=== PATIENT | female | born 1950 | race Caucasian/White ===

== ENCOUNTER → 2017-12-06 07:47 | Outpatient (CLI) | payer MEDICARE, SELFPAY ==
--- NOTE | 2017-12-06 07:52 | US_ITS ---
US abdomen limited History:Right upper quadrant pain with nausea and diarrhea Ordering Physician:Sang Johnson MD Patient Age: 67 years Comparison:None Findings: Pancreas:Unremarkable. No obvious mass or abnormal fluid collection. No ductal dilatation Liver:No focal liver lesions demonstrated. Homogeneous echogenicity. No intrahepatic biliary ductal dilatation evident Right Kidney:Unremarkable. Normal size and echogenicity. No hydronephrosis Gallbladder:No gallstones, gallbladder wall thickening, pericholecystic fluid, or biliary dilatation. There is a small amount of gallbladder sludge noted nonspecific. No shadowing stones Impression: 1. Small amount of gallbladder sludge of questioned clinical significance. 2. Otherwise negative right upper quadrant ultrasound
== END ==
PROVIDERS: Family Provider Family Medicine; PCP Family Medicine; Visit Provider Family Medicine
DX: R10.11 Right upper quadrant pain (principal)
CPT/HCPCS: 76705

== ENCOUNTER → 2018-12-24 09:38 | Outpatient (CLI) | payer MEDICARE, SELFPAY ==
--- NOTE | 2018-12-24 09:45 | XR_ITS ---
XR DEXA axial skeleton HISTORY: ITS.REASON: POST MENOPAUSAL SCREENING ORDERING PHYSICIAN: Sang Johnson MD PATIENT AGE: 68 years COMPARISON: 11/22/2016 FINDINGS: The BMD measured at the AP Spine L1-L4 is 0.836 g/cm squared with a T score of -2.9. This is considered Osteoporotic according to the World Health Organization criteria. Fracture risk is High. Treatment is advised. The lumbar spine density is increased bilaterally percent. The main hip density has a T score of -1.4 and is increased by 2.3% IMPRESSION: Osteoporosis with high fracture risk. Treatment is advised. Suggest follow-up exam November 2019
--- NOTE | 2018-12-24 09:45 | MM_ITS ---
PROCEDURE: MM DIG SCREENING MAMM BI W/CAD CLINICAL INDICATION: SCREENING There is a history of breast cancer in the patient's maternal aunt. COMPARISON: DMSB DIG MAMM-SCREEN GENI W/CAD from 11/22/2016 TECHNIQUE: Standard CC and MLO images were obtained. R2 CAD reviewed. FINDINGS: There is a diffusely dense a heterogenic parenchymal pattern somewhat lessening the sensitivity of mammography. There is a mole marker left breast and a couple benign-appearing microcalcifications left breast. There also is a biopsy clip left breast subareolar region. There is no suspicious lesion and no suspicious microcalcifications. IMPRESSION: Diffusely dense parenchymal pattern with no suspicious lesion seen BI-RAD Category: 2 Benign Finding(s) FOLLOW-UP: 1YR 1 Year Follow-up (A letter has been sent to the patient regarding results of the study.) Dictated by: Dr. Viral Gomez MD 01/15/2019 10:55 Signed by: <Electronically signed by Dr. Viral Gomez MD in [place]> 01/15/2019 10:55
== END ==
PROVIDERS: PCP Family Medicine; Visit Provider Family Medicine
DX: Z12.31 Encounter for screening mammogram for malignant neoplasm of breast (principal); M81.0 Age-related osteoporosis without current pathological fracture
CPT/HCPCS: 77067; 77080

== ENCOUNTER → 2020-03-15 08:05 | Outpatient (CLI) | payer MEDICARE, SELFPAY ==
--- NOTE | 2020-03-15 | CA_ITS ---
APPROVED REPORT Account Collector: IAIN Laterality: Bilateral Risk Factors Hypertension: Hyperlipidemia Doppler Spectral Velocity Analysis ECA (R) 54.70/13.70 cm/s ECA (L) 73.20/18.00 cm/s dICA (R) 106.20/39.40 cm/s dICA (L) 86.70/34.00 cm/s Esteban (R) 98.50/42.00 cm/s Esteban (L) 81.50/37.20 cm/s pICA (R) 64.20/19.30 cm/s pICA (L) 80.90/34.70 cm/s dCCA (R) 71.30/24.40 cm/s dCCA (L) 68.70/23.80 cm/s pCCA (R) 81.50/25.70 cm/s pCCA (L) 71.90/24.40 cm/s Vert (R) 41.50/15.00 cm/s Vert (L) 61.00/23.10 cm/s ICA/CCA 1.49 ICA/CCA 1.26 Findings Duplex evaluation demonstrates stenosis of the right proximal internal carotid artery <20% with PSV <140 cm/sec, EDV <100 cm/sec, and IC/CC Ratio <4.0. Duplex evaluation demonstrates stenosis of the left proximal internal carotid artery <20% with PSV <140 cm/sec, EDV <100 cm/sec, and IC/CC Ratio <4.0. Conclusion Duplex evaluation demonstrates stenosis of the right proximal internal carotid artery <20% with PSV <140 cm/sec, EDV <100 cm/sec, and IC/CC Ratio <4.0. Duplex evaluation demonstrates stenosis of the left proximal internal carotid artery <20% with PSV <140 cm/sec, EDV <100 cm/sec, and IC/CC Ratio <4.0. Electronically signed by : Jomar Contreras MD 03/16/2020 17:26:27
--- NOTE | 2020-03-15 08:09 | XR_ITS ---
PROCEDURE: XR DEXA AXIAL SKELETON CLINICAL HISTORY: OSTEOPOROSIS The patient is postmenopausal and currently is on vitamin-D and calcium. COMPARISON: CR DXA Exam from 12/24/2018 FINDINGS: The total right hip BMD is 0.767 grams/centimeter squared with a T-score of -1.4. Stable and unchanged from the previous DEXA scan 12/24/2018 the right femoral neck is 0.631 grams/centimeter sq with a T-score -2.0 showing slight improvement from the previous study which was -2.2 The total left hip BMD is 0.731 grams/centimeter squared with a T-score of -1.7, the previous value was -1.4. The left femoral neck is 0.672 grams/centimeter squared with a T-score -1.6 which shows interval improvement from the previous study at which time it was -2.2. The lumbar spine BMD is 0.776 grams/centimeter squared with a T-score of -2.5 which is a slight improvement from the previous study at which time it was -2.9. IMPRESSION: T-scores in the osteopenia range for the bilateral hips borderline osteoporosis lumbar spine Based on these results a follow-up exam is recommended in 2 year. Dictated by: Dr. Viral Gomez MD 03/15/2020 13:35 Dr. Viral Gomez MD in [place] 03/15/2020 13:35
--- NOTE | 2020-03-15 08:10 | MM_ITS ---
PROCEDURE: MM DIG SCREENING MAMM BI W/CAD Digital Breast Tomosynthesis Included CLINICAL INDICATION: SCREENING There is a history of breast cancer in the patient's maternal aunt. There has been a previous biopsy left breast for benign disease. COMPARISON: MG DMSB DIG MAMM-SCREEN GENI from 05/18/2014 MG DMSB DIG MAMM-SCREEN GENI W/CAD from 11/22/2016 MG MM DIG SCREENING MAMM BI W/CAD from 12/24/2018 TECHNIQUE: Standard CC and MLO images and 3D Tomosynthesis was obtained. R2 CAD reviewed. FINDINGS: There is a diffusely dense and heterogenic parenchymal pattern as noted previously. There is a mole marker left breast. There is a biopsy clip left breast along with a couple of benign-appearing microcalcifications. Jake images are helpful in ruling out any suspicious lesion in either breast. There are no suspicious microcalcifications. IMPRESSION: Stable dense parenchymal pattern with no suspicious lesions seen BI-RAD Category: 2 Benign Finding(s) FOLLOW-UP: 1YR 1 Year Follow-up (A letter has been sent to the patient regarding results of the study.) Dictated by: Dr. Viral Gomez MD 03/15/2020 10:26 Dr. Viral Gomez MD in [place] 03/15/2020 10:26
== END ==
PROVIDERS: PCP Family Medicine; Visit Provider Nurse Practitioner Family
DX: Z12.31 Encounter for screening mammogram for malignant neoplasm of breast (principal); M81.0 Age-related osteoporosis without current pathological fracture; R09.89 Other specified symptoms and signs involving the circulatory and respiratory systems
CPT/HCPCS: 77063; 77067; 77080; 93880

== ENCOUNTER → 2021-01-17 15:04 | Outpatient (POV) | payer MEDICARE, SELFPAY | PROVIDERS: Visit Provider Dermatology | DX: Z00.00 Encounter for general adult medical examination without abnormal findings (principal) ==

== ENCOUNTER → 2021-05-03 12:30 | Outpatient (CLI) | payer MEDICARE, SELFPAY | PROVIDERS: PCP Family Medicine; Visit Provider Family Medicine | DX: R00.2 Palpitations (principal) | CPT/HCPCS: 93225; 93226 ==

== ENCOUNTER → 2021-05-08 09:02 | Outpatient (CLI) | payer MEDICARE, SELFPAY ==
--- NOTE | 2021-05-08 09:09 | CA_ITS ---
APPROVED REPORT EXAM: Comprehensive 2D, Doppler, and color-flow Echocardiogram Furnace Tender: Cynthia Crandall RVT Ht: 5 ft 5 in Wt: 135lbs BSA: 1.67 BP: 150/80 mmHg Indications: PALPS,HTN 2D Dimensions LVOT 1.93 cm (M/F) 1.5-2.5 LA Volume 52.10 mL LA Volume Index 31.19 mL/m2 (M/F) 16-34 M-Mode Dimensions RVDd 3.15 cm (0.9-2.6) LA Diam 3.95 cm (1.9-4.0) LVDd 3.18 cm (3.5-5.7) Ao Diam 2.64 cm (2.0-3.7) LVDs 2.04 cm (3.5-5.7) IVSd 0.89 cm (0.6-1.1) PWd 0.75 cm (0.6-1.1) EF (Teich) 66.70% FS 35.80% EDV (Teich) 40.30 mL TAPSE 2.37 (<1.7) ESV (Teich) 13.40 mL LV Diastology E Decel Time 230.00 (160-240 msec) E/A Ratio 0.7 MED E' 11.40 (< 7 cm/sec) E'/MED E' Ratio 7.95 (>14) LAT E' 13.40 (<10 cm/sec) E/LAT E' Ratio 6.76 (>14) Mitral Valve MV E Max Jay Jay. 91.00 (40-130 cm/s) MV A Velocity 122.00 (40-130 cm/s) E/A Ratio 0.74 MV Decel. Time 230.00 (160-240 ms) MV PHT 67.00 ms Pulmonary Valve PV Peak Velocity 75.00 (50-150 cm/s) Tricuspid Valve TR P. Velocity 282.00 cm/s RAP Estimate 10.00 mmHg RVSP 41.90 mmHg Left Ventricle Left atrium is qualitatively mildly enlarged, left ventricle is normal size, there is no concentric left ventricular hypertrophy, visually estimated ejection fraction 55% with no regional wall motion abnormality, diastolic parameters are within normal range. Right Ventricle Right atrium and right ventricle are mildly enlarged with normal contractility. Aortic Valve Aortic valve is minimally thickened and fibrosed, there is no aortic stenosis or aortic insufficiency. Mitral Valve Mitral valve leaflets are grossly normal, there is mild mitral regurgitation. Tricuspid Valve Tricuspid valve grossly normal, there is mild tricuspid regurgitation. Tricuspid regurgitation jet velocity is inadequate for calculation of the right ventricular systolic pressure. Pulmonic Valve Pulmonic valve is poorly visualized. Great Vessels Aortic root is normal size. Inferior vena cava normal size with normal inspiratory collapse. Pericardium No significant pericardial effusion noted. Conclusion 1. Mild biatrial enlargement, normal left ventricular size, visually estimated ejection fraction 55% with no regional wall motion abnormality, diastolic parameters are within normal range. 2. Mildly enlarged right ventricle with normal contractility. 3. Mild mitral and tricuspid regurgitation. 4. No significant pericardial effusion noted. 5. Inferior vena cava normal size with normal inspiratory collapse. Electronically signed by : Tien Rosas MD 05/08/2021 19:45:03
== END ==
PROVIDERS: PCP Family Medicine; Visit Provider Family Medicine
DX: R00.2 Palpitations (principal)
CPT/HCPCS: 93306

== ENCOUNTER → 2021-05-18 09:48 | Outpatient (CLI) | payer MEDICARE, SELFPAY ==
--- NOTE | 2021-05-18 09:52 | MM_ITS ---
PROCEDURE INFORMATION: Exam: MG Bilateral Screening 3D Mammography Exam date and time: 05/18/2021 9:52 AM Age: 70 years old Clinical indication: Encounter for screening mammogram for malignant neoplasm of breast TECHNIQUE: Imaging protocol: Bilateral screening tomosynthesis and 2D mammography including computer-aided detection (CAD) when performed. COMPARISON: 1. MG MM DIG SCREENING MAMM BI W/CAD 03/15/2020 8:18 AM 2. MG MM DIG SCREENING MAMM BI W/CAD 12/24/2018 10:09 AM FINDINGS: MAMMOGRAPHY: Breast composition: The breast tissue is extremely dense, limiting the sensitivity of mammography. Mass: None. Architectural distortion: None. Calcifications: No suspicious calcifications. Asymmetric density: None. Skin thickening: None. Axillary adenopathy: None. IMPRESSION: No mammographic evidence of malignancy. Annual screening is recommended unless otherwise clinically indicated. ASSESSMENT: BI-RADS Category 1: Negative
== END ==
PROVIDERS: PCP Family Medicine; Visit Provider Family Medicine
DX: Z12.31 Encounter for screening mammogram for malignant neoplasm of breast (principal)
CPT/HCPCS: 77063; 77067

== ENCOUNTER → 2021-10-31 08:34 | Outpatient (POV) | payer MEDICARE, SELFPAY | PROVIDERS: Visit Provider Dermatology | DX: Z00.00 Encounter for general adult medical examination without abnormal findings (principal) ==

== ENCOUNTER → 2022-05-29 07:59 | Outpatient (CLI) | payer MEDICARE, SELFPAY ==
--- NOTE | 2022-05-29 08:06 | XR_ITS ---
FINAL REPORT TECHNIQUE: Bone densitometry calculations of the lumbar spine and hip were obtained. CLINICAL HISTORY: osteopenia COMPARISON: March 15, 2020 FINDINGS: DEXA BONE DENSITY AXIAL SKELETON Using L1-4, the bone mineral density of the spine is 0.765 g/cm2, corresponding to T-score of -2.6. Previously measured 0.776 g/cm2, corresponding to T-score of -2.5. Using the left hip, the bone mineral density of the femoral neck is 0.741 g/cm2, corresponding to a T-score of -1.6. Previously measured 0.731 g/cm2, corresponding to T-score of -1.7. Using the right hip, the bone mineral density of the femoral neck is 0.683 g/cm2, corresponding to a T-score of -1.5. Previously measured 0.631 g/cm2, corresponding to T-score of -2.0. NOTE: T-score: Standard deviation compared with peak bone mass of young adult mean. *Following the recommendations of the International Society of Bone densitometry, classification of hip BMD is based on the lower of two T-scores; total hip or femoral neck. IMPRESSION: Persistent osteopenia of the hips and osteoporosis of the spine. No significant bone loss. Reviewed, Interpreted and Dictated by Tadeo Michel MD Transcribed by Josselyn Krueger Authenticated and [facility]
--- NOTE | 2022-05-29 11:16 | MM_ITS ---
PROCEDURE INFORMATION: Exam: MG Bilateral Screening 3D Mammography Exam date and time: 05/29/2022 8:09 AM Age: 71 years old Clinical indication: Screening examination TECHNIQUE: Imaging protocol: Bilateral Screening tomosynthesis and 2D mammography including computer-aided detection (CAD) when performed. COMPARISON: 1. MG MM DIG SCREENING MAMM BI W/CAD 05/18/2021 10:18 AM 2. MG MM DIG SCREENING MAMM BI W/CAD 03/15/2020 8:18 AM 3. MG MM DIG SCREENING MAMM BI W/CAD 12/24/2018 10:09 AM 4. MG DIG MAMMO BILAT SCREENING 09/06/2009 8:12 AM FINDINGS: MAMMOGRAPHY: Breast composition: The breast tissue is extremely dense, which lowers the sensitivity of mammography. Mass: None. Architectural distortion: No new or suspicious architectural distortion. Calcifications: No new or suspicious calcifications are present Asymmetric density: No new or suspicious asymmetric density is present Skin thickening: None. Axillary adenopathy: None. IMPRESSION: No mammographic evidence of malignancy. Recommend annual screening mammography unless otherwise clinically indicated. ASSESSMENT: BI-RADS category 1: Negative
== END ==
PROVIDERS: PCP Family Medicine; Visit Provider Family Medicine
DX: Z12.31 Encounter for screening mammogram for malignant neoplasm of breast (principal); M81.0 Age-related osteoporosis without current pathological fracture
CPT/HCPCS: 77063; 77067; 77080

== ENCOUNTER → 2022-10-16 08:09 | Outpatient (POV) | payer MEDICARE, SELFPAY | PROVIDERS: Visit Provider Dermatology | DX: Z00.00 Encounter for general adult medical examination without abnormal findings (principal) ==

== ENCOUNTER 2023-06-07 09:09 | Outpatient (CLI) | payer MEDICARE, SELFPAY ==
--- NOTE | 2023-06-07 09:14 | MM_ITS ---
PROCEDURE INFORMATION: Exam: MG Bilateral Screening 3D Mammography Exam date and time: 06/07/2023 9:17 AM Age: 72 years old Clinical indication: Screening examination TECHNIQUE: Imaging protocol: Bilateral Screening tomosynthesis and 2D mammography including computer-aided detection (CAD) when performed. COMPARISON: 1. MG MM DIG SCREENING MAMM BI W/CAD 05/29/2022 8:09 AM 2. MG MM DIG SCREENING MAMM BI W/CAD 05/18/2021 10:18 AM 3. MG MM DIG SCREENING MAMM BI W/CAD 03/15/2020 8:18 AM 4. MG DIG MAMMO BILAT SCREENING 09/06/2009 8:12 AM FINDINGS: MAMMOGRAPHY: Breast composition: The breast is heterogeneously dense, which may obscure small masses. Mass: None. Architectural distortion: No new or suspicious architectural distortion. Calcifications: No new or suspicious calcifications are present Asymmetric density: No new or suspicious asymmetric density is present Skin thickening: None. Axillary adenopathy: None. IMPRESSION: No mammographic evidence of malignancy. Recommend annual screening mammography unless otherwise clinically indicated. ASSESSMENT: BI-RADS category 1: Negative
--- NOTE | 2023-06-07 09:49 | XR_ITS ---
FINAL REPORT CLINICAL HISTORY: Osteoporosis screening COMPARISON: 05/29/2022 FINDINGS: Using L1-4, the bone mineral density of the spine is 0.755 g/cm2, corresponding to T-score of -2.7, consistent with osteoporosis. Previously was 0.765 g/cm? with T-score -2.6. Using the left hip, the bone mineral density of the femoral neck is 0.661 g/cm2, corresponding to a T-score of -1.7, consistent with low bone density. Previously was 0.741 g/cm? with T-score of -1.6. Using the right hip, the bone mineral density of the femoral neck is 0.691 g/cm2, corresponding to a T-score of -1.4, consistent with low bone density. Previously was 0.683 g/cm? with T-score of -1.5. FRAX not reported because some T-score at or below -2.5; treated for osteoporosis. NOTE: T-score: Standard deviation compared with peak bone mass of young adult mean. *Following the recommendations of the International Society of Bone densitometry, classification of hip BMD is based on the lower of two T-scores; total hip or femoral neck. IMPRESSION: Diminished bone mineral density consistent with osteoporosis. Reviewed, Interpreted and Dictated by Benny Olmstead III, MD Transcribed by Cele Vázquez Authenticated and [facility]
== END 2023-06-07 23:59 ==
LOC: RAD 09:09
PROVIDERS: PCP Family Medicine; Visit Provider Family Medicine
DX: Z12.31 Encounter for screening mammogram for malignant neoplasm of breast (principal); M81.0 Age-related osteoporosis without current pathological fracture
CPT/HCPCS: 77063; 77067; 77080

== ENCOUNTER 2023-07-21 18:45 | Emergency (ER) | payer MEDICARE, SELFPAY ==
[2023-07-21 19:15] VITALS: BP 170/80; PULSE 68; RESP 18; TEMP 36.7; O2SAT 97; BMI 24.3
--- NOTE | 2023-07-21 19:26 | ED_ITS ---
Discharge Plan Disposition Patient Disposition: Home, Self-Care Condition: Good Prescriptions Prescriptions: New azithromycin [Zithromax] 250 mg tablet 250 mg PO UD DOSE PK Qty: 6 0RF Rx Instructions: Take two (2) tablets today, then one (1) tablet days #2 thru #5 methylprednisolone 4 mg Tablets,Dose Pack 4 mg PO DIRECTED 6 Days Qty: 21 0RF Rx Instructions: Take 1 pack as directed for 6 days guaifenesin [Mucinex] 600 mg tablet extended release 12hr 600 - 1,200 mg PO BIDP PRN (Reason: Congestion) Qty: 30 0RF benzonatate [benzonatate] 100 mg capsule 100 mg PO TIDP PRN (Reason: Cough) Qty: 30 0RF No Action pravastatin 40 MG tablet 40 mg PO DAILY sennosides-docusate sodium [Stool Softener-Laxative] 1 EACH tablet 1 ea PO DAILY aspirin [Aspir-81] 81 MG tablet,delayed release (DR/EC) 81 mg PO DAILY calcium carbonate 500 MG tablet 500 mg PO DAILY vitamin E 400 UNIT capsule 400 unit PO DAILY amlodipine-benazepril [Lotrel] 1 EACH capsule 1 ea PO DAILY fluticasone propionate 120 SPR/BOT spray,suspension 1 spr intranasal DAILY Referrals Follow up/Referrals: Sang Johnson MD [Primary Care Provider] - See instructions Activity Restrictions/Add. Instructions Additional Instructions/Restrictions: Drink plenty of fluids. Take tylenol or ibuprofen for pain or fever. Take the medications as directed. Follow up with your regular doctor. GO TO THE ER FOR ANY WORSENING SYMPTOMS Clinical Impressions Clinical Impression: Sinusitis, Acute viral syndrome Instructions Patient Instructions: Sinusitis, DI for Sinusitis Discharge ED Provider: Mauricio Jean [facility] General Stated complaint: cough, [place], carlos Time Seen by Provider: 07/21/23 19:26 History of Present Illness Provider Complaint: She states that for the past 2 days she has had mild headache, chills, malaise, low grade fever and sinus congestion. Related Data Home Medications Medication Instructions Recorded Confirmed amlodipine 10 mg-benazepril 20 mg 1 ea PO DAILY htn 18 01/11/18 capsule (Lotrel) aspirin 81 mg tablet,delayed 81 mg PO DAILY Blood thinner 11/11/17 01/11/18 release (Aspir-) calcium carbonate 500 mg calcium 500 mg PO DAILY Supplement 11/11/17 01/11/18 (1,250 mg) tablet pravastatin 40 mg tablet 40 mg PO DAILY Cholesterol 11/11/17 01/11/18 sennosides 8.6 mg-docusate sodium 1 ea PO DAILY constipation 11/11/17 01/11/18 50 mg tablet (Stool Softener-Laxative) vitamin E 268 mg (400 unit) capsule 400 unit PO DAILY Supplement 11/11/17 01/11/18 fluticasone propionate 50 1 spr intranasal DAILY ALLERGIES 01/11/18 01/11/18 mcg/actuation nasal spray,suspension Previous Rx's Medication Instructions Recorded azithromycin 250 mg tablet 250 mg PO UD DOSE PK #6 tabs 07/21/23 (Zithromax) benzonatate 100 mg capsule 100 mg PO TIDP PRN Cough #30 caps 07/21/23 guaifenesin 600 mg tablet, 600 - 1,200 mg PO BIDP PRN 07/21/23 extended release 12 hr (Mucinex) Congestion #30 tabs methylprednisolone 4 mg tablets in 4 mg PO DIRECTED 6 days #21 tabs 07/21/23 a dose pack Allergies Allergy/AdvReac Type Severity Reaction Status Date / Time No Known Allergies Allergy Verified 07/21/23 19:35 [facility] Disclaimer: The information contained in this section may have been updated after the patient was seen, as this information can be updated by other users. Social History Smoking Status: Never smoker alcohol intake: never current occupational status: retired Travel in the last 8 weeks: None ROS Obtained: Yes All systems reviewed & no additional complaints except as documented Constitutional Constitutional: Reports body ache and Reports poor appetite Eyes Eyes: Reports system reviewed and no additional complaints, except as documented ENT Ears, Nose, Mouth, and Throat: Reports as per HPI Cardiovascular Cardiovascular: Reports system reviewed and no additional complaints, except as documented and Denies chest pain Respiratory Respiratory: Denies shortness of breath, Denies chest congestion, Reports cough, Denies stridor and Denies wheezing Gastrointestinal Gastrointestingal: Reports system reviewed and no additional complaints, except as documented; Denies abdominal pain, diarrhea or vomiting Musculoskeletal Musculoskeletal: Reports system reviewed and no additional complaints, except as documented and Denies arthralgias Integumentary/Breasts Skin/Breast: Reports system reviewed and no additional complaints, except as documented and Denies rash Neurologic Neurologic: Denies paresthesias Allergic/Immunologic Allergic/Immunologic: Denies wheezing Physical Exam General General appearance: alert and in no apparent distress Eye Eye exam: Present normal appearance, PERRL and EOMI ENT ENT exam: Present mucous membranes moist and normal external ear exam Expanded ENT Exam External ear exam: Present normal external inspection TM/Canal exam: Bilateral TM: erythema and bulging Nose exam: Absent sinus tenderness Nasal speculum exam: Bilateral: normal Mouth exam: Present normal external inspection; Absent drooling Teeth exam: Present normal inspection Throat exam: Present tonsillar erythema and tonsillomegaly Neck Neck exam: Present normal inspection, full ROM and trachea midline; Absent tenderness, lymphadenopathy or thyromegaly Chest Chest inspection: Present normal inspection and symmetric chest wall rise; Absent tenderness or rash Respiratory Respiratory exam: Present normal lung sounds bilaterally; Absent respiratory distress, wheezes, stridor or accessory muscle use Cardiovascular Cardiovascular exam: Present regular rate, normal rhythm and normal heart sounds Abdominal Exam Abdominal exam: Present soft; Absent distention, tenderness, guarding, rebound or rigidity Extremities Exam Extremities exam: Present normal inspection, full ROM and normal capillary refill; Absent tenderness or calf tenderness Back Exam Back exam: Present normal inspection and full ROM; Absent tenderness Neurological Exam Neurological exam: Present alert and oriented X3 Psychiatric Psychiatric exam: Present normal affect and normal mood Skin Skin exam: Present warm, dry, intact and normal color Lymphatic Lymphatic Findings: no adenopathy Medical Decision Making Medical Records Medical records reviewed: No I reviewed the patient's medical records. Ajit Inquiry Pt receiving controlled substance: No Lab Data Lab results reviewed: Yes I reviewed the patient's lab results.
[2023-07-21 20:08] LABS: UTC Influenza A Antigen Negative (Negative); UTC Influenza B Antigen Negative (Negative)
[2023-07-21 20:17] VITALS: BP 170/82; PULSE 68; RESP 18; TEMP 36.7; O2SAT 97
[2023-07-21 20:21] LABS: Coronavirus 19, PCR Not Detected (NotDetected); Influenza A, PCR Not Detected (NotDetected); Influenza B, PCR Not Detected (NotDetected)
== END 2023-07-21 20:32 | disposition home or self-care (01) ==
PROVIDERS: Emergency Provider Nurse Practitioner Family; PCP Family Medicine
DX: J01.90 Acute sinusitis, unspecified (principal); R50.9 Fever, unspecified; R51.9 Headache, unspecified; R05.9 Cough, unspecified; R09.81 Nasal congestion; B34.9 Viral infection, unspecified
CPT/HCPCS: 87636; 87804; 99204; 99212; G0463

== ENCOUNTER 2024-04-01 10:09 | Outpatient (CLI) | payer MEDICARE, SELFPAY ==
[2024-04-01 17:52] LABS: Coronavirus 19, PCR Not Detected (NotDetected); Influenza A, PCR Not Detected (NotDetected); Influenza B, PCR Not Detected (NotDetected)
== END 2024-04-01 23:59 | disposition home or self-care (01) ==
LOC: LAB.DROPOF 04-02 11:05
PROVIDERS: PCP Nurse Practitioner Family; Visit Provider Nurse Practitioner Family
DX: R50.9 Fever, unspecified (principal); J06.9 Acute upper respiratory infection, unspecified
CPT/HCPCS: 87636

== ENCOUNTER 2024-07-01 09:02 | Outpatient (CLI) | payer MEDICARE, SELFPAY ==
[2024-07-01] MEDS: DENOSUMAB 60 MG/ML SYRINGE SUBCUT (09:27)
[2024-07-01 09:29] VITALS: BP 180/70; PULSE 62; RESP 18; O2SAT 97
== END 2024-07-01 09:29 | disposition home or self-care (01) ==
LOC: INF 09:03
PROVIDERS: PCP Family Medicine; Visit Provider Family Medicine
DX: M81.0 Age-related osteoporosis without current pathological fracture (principal)
CPT/HCPCS: 96372; J0897

== ENCOUNTER 2024-07-10 09:11 | Outpatient (CLI) | payer MEDICARE, SELFPAY ==
--- NOTE | 2024-07-10 09:14 | MM_ITS ---
PROCEDURE INFORMATION: Exam: MG Bilateral Screening 3D Mammography Exam date and time: 07/10/2024 9:50 AM Age: 74 years old Clinical indication: Screening examination TECHNIQUE: Imaging protocol: Bilateral Screening tomosynthesis and 2D mammography including computer-aided detection (CAD) when performed. COMPARISON: 1. MG MM DIG SCREENING MAMM BI W/CAD 06/07/2023 9:17 AM 2. MG MM DIG SCREENING MAMM BI W/CAD 05/29/2022 8:09 AM FINDINGS: MAMMOGRAPHY: Breast composition: The breasts are heterogeneously dense, which may obscure small masses. Mass: No suspicious masses. Architectural distortion: None. Calcifications: No suspicious calcifications. Asymmetric density: None. Skin thickening: None. Axillary adenopathy: None. IMPRESSION: No mammographic evidence of malignancy. Annual screening is recommended unless otherwise clinically indicated. ASSESSMENT: BI-RADS Category 1: Negative.
--- NOTE | 2024-07-10 09:14 | XR_ITS ---
FINAL REPORT CLINICAL HISTORY: screening FINDINGS: Using L1-4, the bone mineral density of the spine is 0.753 g/cm2, corresponding to T-score of -2.7, consistent with osteoporosis. Previously was 0.755 with a T-score of -2.7 Using the left hip, the bone mineral density of the femoral neck is 0.649 g/cm2, corresponding to a T-score of -1.8, consistent with osteopenia. Previously was 0.661 with a T-score of -1.7 Using the right hip, the bone mineral density of the femoral neck is 0.717 g/cm2, corresponding to a T-score of -1.2, consistent with osteopenia. Previously was 0.691 with a T-score of-1.4. FRAX not reported because some T-score at or below-2.5, the patient is being treated for osteoporosis NOTE: T-score: Standard deviation compared with peak bone mass of young adult mean. *Following the recommendations of the International Society of Bone densitometry, classification of hip BMD is based on the lower of two T-scores; total hip or femoral neck. IMPRESSION: Diminished bone mineral density consistent with osteoporosis in the lumbar spine and osteopenia in the bilateral hips. Reviewed, Interpreted and Dictated by Tadeo Michel MD Transcribed by Cele Vázquez Authenticated and [facility]
== END 2024-07-10 23:59 | disposition home or self-care (01) ==
LOC: RAD 09:12
PROVIDERS: PCP Family Medicine; Visit Provider Family Medicine
DX: M85.88 Other specified disorders of bone density and structure, other site (principal); Z12.31 Encounter for screening mammogram for malignant neoplasm of breast
CPT/HCPCS: 77063; 77067; 77080

== ENCOUNTER 2024-12-30 09:22 | Outpatient (CLI) | payer MEDICARE, SELFPAY ==
--- OUTSIDE RECORDS SUMMARY | 2024-02-27 07:45 | XMS_ITS ---
[facility] [address] [place] [phone] Care Team Providers Care Tobacco Buyer Name Role Phone Chitra Johnson Primary Care Provider Allergies No Known Allergies Results Component Value Reference Range Notes P-Comprehensive Metabolic Pa ashley (CMP) Reviewed date:03/08/2024 10:15:18 PM Interpretation:gluc 101 Performing Lab: Notes/Report: Test performed by [facility], [facility] , [address], [place] [address] Kirill Jacobs MD, [employer] [facility] CLIA: [id number] Sodium 144 135-145 mmol/L Potassium 4.0 3.5-5.3 mmol/L Chloride 105 97-108 mmol/L CO2 27 22-32 mmol/L Glucose 101 65-99 mg/dL BUN 16 8-23 mg/dL Creatinine 0.71 0.50-1.00 mg/dL Calcium 9.7 8.6-10.4 mg/dL eGFR by Creatinine 89 >59 mL/min/1.73m2 Protein 6.6 6.0-8.3 g/dL Albumin 4.5 3.5-5.3 g/dL Alkaline Phosphatase 85 35-121 IU/L ALT (SGPT) 15 <5-47 IU/L AST (SGOT) 16 <5-40 IU/L Bilirubin, Total 0.4 <0.2-1.2 mg/dL A/G Ratio 2.1 1.1-2.5 P-Lipid Panel Reviewed date:03/08/2024 10:15:18 PM Interpretation:Normal Performing Lab: Notes/Report: Test performed by [facility], [address] , [place] [address] Kirill Jacobs MD, [employer] CLIA: [id number] Cholesterol 148 <200 mg/dL Triglycerides 115 <150 mg/dL HDL Cholesterol 44 >39 mg/dL Cholesterol / HDL Ratio 3.36 0.00-4.44 Ratio Non-HDL Cholesterol 104 <130 mg/dL LDL Cholesterol (Calculation) 81 <130 mg/dL LDL Cholesterol Levels* Less than 100 mg/dL Optimal 100 to 129 mg/dL Near Optimal/ Above Optimal 130 to 159 mg/dL Borderline High 160 to 189 mg/dL High 190 mg/dL and above Very High * Categories as recommended by the 2004 ATPIII guidelines LDL/HDL Ratio 1.8 <3.3 Ratio LDL Cholesterol Patient History Test Date: 05/16/2023 LDL Results: 73 Units: mg/dL % Change: - Test Date: 02/27/2024 LDL Results: 81 Units: mg/dL % Change: +10% REASON FOR VISIT check up and fasting, Needs labs & flu vaccine Medications Medication SIG (Take, Route, Frequency, Duration) Notes Start Date End Date Status Pravastatin Sodium 40 MG 1 tab(s) orally once a day (at bedtime); Duration: 90 days Active Alendronate Sodium 70 MG 1 tab(s) orally once a week Active Prolia 60 MG/ML as directed Subcutaneous Active Cetirizine HCl 10 MG 1 tab(s) orally once a day Active Benazepril HCl 20 MG 1 tab(s) orally once a day Active Docusate Sodium 100 MG 2TABS P.O. Q DAY Active Vitamin E Blend 400 UNIT 1 cap(s) orally once daily Active Xarelto 20 MG 1 tab(s) orally once a day (in the evening) Active Famotidine 20 MG 1 tab(s) orally 2 ti mes a day; Duration: 90 days Active Metoprolol Succinate ER 25 MG 1 tab(s) orally once a day A ctive amLODIPine Besylate 10 MG 1 tab(s) orally once a day Active Vital Signs Blood pressure systolic 128 mm Hg 02/27/20 24 Blood pressure diastolic 60 mm Hg 024 Heart Rate 56 /min 02/27/2024 Height 65 in 02/27/2024 Weight 140.0 lbs 02/27/2024 BMI 23.29 kg/m2 02/27/2024 Encounters Encounter Location Date Provider Diagnosis [facility] [address] [place] [phone] 02/27/2024 Chitra Johnson HTN (hypertension) I 10 ; Mixed hyperlipidemia E78.2 ; Paroxysmal atrial fibrillation I48.0 ; Osteoporosis M81.0 ; GERD (gastroesophageal reflux disease) K21.9 and Seasonal allergic rhinitis J30.2 Assessments Encounter Date Diagnosis (ICD Code) Assessment Notes Treatment Notes Treatment Clinical Notes Section Notes 02/27/2024 HTN (hypertension) (ICD-10 - I10) 02/27/2024 Mixed hyperlipidemia (ICD-10 - E78.2) 02/27/2024 Paroxysmal atrial fibrillation (ICD-10 - I48.0) 02/27/2024 Osteoporosis (ICD-10 - M81.0) 02/27/2024 GERD (gastroesophageal reflux disease) (ICD-10 - K21.9) 02/27/2024 Seasonal allergic rhinitis (ICD-10 - J30.2) Plan Of Treatment Medication Medication Name Sig Start Date Stop Date Notes Pravastatin Sodium 40 MG 1 tab(s) orally once a day (at bedtime); Duration: 90 days Alendronate Sodium 70 MG 1 tab(s) orally once a week Benazepril HCl 20 MG 1 tab(s) orally once a day Xarelto 20 MG 1 tab(s) orally once a day (in the evening) Famotidine 20 MG 1 tab(s) orally 2 ti mes a day; Duration: 90 days Metoprolol Succinate ER 25 MG 1 tab(s) orally once a day amLODIPine Besylate 10 MG 1 tab(s) orally once a day Next Appt Details Follow Up: 1 Year, Reason: Progress Notes * Tanja FATIMADOB:1950 ( 74 yo F)Acc No.[id number]:02/27/2024 Progress Notes Patient: Tanja ZAVALA Provider: Chitra Johnson M.D. :1950 A ge:73 Y S ex:Female Date:02/27/2024 Address:[address], [place], [id number] Subjective: * Chief Complaints: * 1 . Check up and fasting. 2. Needs labs & flu vaccine. * HPI: H PI: Patient is here today for a check up with labs for her cardiologists. Pt is fasting Pt sts she had her Prevnar 20 in 04/2023, her first shingles vaccine on 12-26-23, second does on 02-25-24, covid vaccine on 01-24-24, flu shot on 01-24-24, RSV on 02-25-24. . * ROS: D ERMATOLOGY: no R yuri. n o H nydia. G ASTROENTEROLOGY: no N ausea. n o V omiting. n o D iarrhea.? U ROLOGY: no D ifficulty urinating. n o B lood in urine. * Medical History: H ypertension, Carotid bruit - doppler 04/2014 < 20% stenosis, HLP, Paroxysmal atrial fibrillation, Osteoporosis. * Surgical History: B iopsy L breast 04/29, bilateral Cataract surgery 10/12/13, 10/26/13, right eye surgery-Dr Ann @ [facility] 11/19/17, MOHS- basal cell 04/03/2021, Tooth Extraction 04/10/2023. * Family History: F ather: 69 yrs, Parkinson. M other: alive, CHF, DM,HBP. S iblings: alive, brother with HBP. 2 brother(s) , 1 sister(s) . 1 daughter(s) - healthy. . * Social History: C URRENT TOBACCO USE S moking Status: Patient does NOT smoke. E xercise: yes. Home smoke detector use: yes. Marital Status: . Past smoking status: no, PPD: , years: ,determination:. * Medications: T aking Metoprolol Succinate ER 25 MG Tablet Extended Release 24 Hour 1 tab(s) orally once a day , Taking Xarelto 20 MG Tablet 1 tab(s) orally once a day (in the evening) , Taking Famotidine 20 MG Tablet 1 tab(s) orally 2 times a day , Taking Benazepril HCl 20 MG Tablet 1 tab(s) orally once a day , Taking Pravastatin Sodium 40 MG Tablet 1 tab(s) orally once a day (at bedtime) , Taking amLODIPine Besylate 10 MG Tablet 1 tab(s) orally once a day , Taking Vitamin E Blend 400 UNIT Capsule 1 cap(s) orally once daily , Taking Docusate Sodium 100 MG 2TABS P.O. Q DAY , Taking Cetirizine HCl 10 MG Tablet 1 tab(s) orally once a day , Taking Prolia 60 MG/ML Solution Prefilled Syringe as directed Subcutaneous , Medication List reviewed and reconciled with the patient * Allergies: N .K.D.A. Objective: * Vitals: W t:140.0, Temp:98.3, BP:128/60, HR:56, O2 Sat:93% on RA, Nurse:JADYN, Ht: 65, BMI:23.29. * Examination: G eneral Examination: General Appearance: N AD. H EENT: s clera and conjunctiva clear, PERRLA, TM's normal, translucent. O ral cavity: n o lesions, mucosa moist and WNL, no erythema. N irvin: s upple, no lymphadenopathy. C hest: n ormal shape and expansion. H eart: R SR. L ungs: c lear to auscultation. A bdomen: soft, not distended, nontender, bowel sounds present. N eurologic Exam: no focal deficits. S kin: n ormal, no rash. Assessment: * Assessment: 1. H TN (hypertension) - I10 (Primary) 2 . M ixed hyperlipidemia - E78.2? 3. P aroxysmal atrial fibrillation - I48.0 4 . O steoporosis - M81.0 5 . G ERD (gastroesophageal reflux disease) - K21.9 6 .?Seasonal allergic rhinitis - J30.2 Plan: * Treatment: Value Reference Range A /G Ratio 2.1 1.1-2.5 - * A lbumin 4.5 3.5-5.3 - g/dL * A lkaline Phosphatase 85 35-121 - IU/L * A LT (SGPT) 15 <5-47 - IU/L * A ST (SGOT) 16 <5-40 - IU/L * B ilirubin, Total 0.4 <0.2-1.2 - mg/dL * B UN 16 8-23 - mg/dL * C alcium 9.7 8.6-10.4 - mg/dL * C hloride 105 97-108 - mmol/L * C O2 27 22-32 - mmol/L * C reatinine 0.71 0.50-1.00 - mg/dL * G lucose 101 H 65-99 - mg/dL * P otassium 4.0 3.5-5.3 - mmol/L * S odium 144 135-145 - mmol/L * P rotein 6.6 6.0-8.3 - g/dL * e GFR by Creatinine 89 >59 - mL/min/1.73m2 * Chitra Johnson 03/08/2024 10:15:13 PM >See phone encounter 2.?Mixed hyperlipidemia? Refill Pravastatin Sodium Tablet, 40 MG, 1 tab(s), orally, once a day (at bedtime), 90 days, 90, Refills 3.?LAB: P-Lipid Panel (Collection Date & Time - 02/27/2024 11:22 AM)?Normal* Value Reference Range C holesterol / HDL Ratio 3.36 0.00-4.44 - Ratio * C holesterol 148 <200 - mg/dL * H DL Cholesterol 44 >39 - mg/dL * L DL Cholesterol (Calculation) 81 <130 - mg/d L * L DL/HDL Ratio 1.8 <3.3 - Ratio * N on-HDL Cholesterol 104 <130 - mg/dL * T riglycerides 115 <150 - mg/dL * Chitra Johnson 03/08/2024 10:15:13 PM >See phone encounter 3.?Paroxysmal atrial fibrillation? Continue Metoprolol Succinate ER Tablet Extended Release 24 Hour, 25 MG, 1 tab(s), orally, once a day;?Continue Xarelto Tablet, 20 MG, 1 tab(s), orally, once a day (in the evening).??4.?Osteoporosis? Refill Alendronate Sodium Tablet, 70 MG, 1 tab(s), orally, once a week, 12, Refills 3.??5.?GERD (gastroesophageal reflux disease)? Refill Famotidine Tablet, 20 MG, 1 tab(s), orally, 2 times a day, 90 days, 180, Refills 3.? * Procedure Codes: 9 4760 PULSE OX * Follow Up: 1 Year * Images: Billing Information: * Visit Code: 50313 Office Visit, Est Pt., Level 4. * Procedure Codes: 16748 PULSE OX. * Electronic signature of Chitra Johnson MD on 12/30/2024 at 03:32 AM EDT Sign off status: Pending * Provider: Chitra Johnson M.D. Date: 1 Generated for Alec reddy/Jerald/Wei on: 0 12/30/2024 03:32 AM EDT History and Physical Notes * HPI (History of Present Illness) Category Sub-Category Detail Notes Category Not es HPI Patient is here today for a chec k up with labs for her cardiologists. Pt is fasting Pt sts she had her Prevnar 20 in 04/2023, her first shingles vaccine on 12-26-23, second does on 02-25-24, covid vaccine on 01-24-24, flu shot on 01-24-24, RSV on 02-25-24. Examination Category Sub-Category Detail Notes Category Not es General Examination HEENT: sclera and c onjunctiva clear, PERRLA, TM's normal, translucent Heart: RSR Lungs: clear to auscultatio n Abdomen: soft, not distended, nontender, bowel sounds present General Appearance: NAD Skin: normal, no rash Neurologic Exam: no focal deficits Neck: supple, no lymphaden opathy Oral cavity: no lesions, mucosa m oist and WNL, no erythema Chest: normal shape and exp ansion
--- OUTSIDE RECORDS SUMMARY | 2024-06-23 06:15 | XMS_ITS ---
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 Gr. 1.015 Ketone neg Bili neg Gluc neg CBC Venipuncture (in house) Reviewed date:06/25/2024 08:29:09 AM Interpretation: Performing Lab: Notes/Report: wbc 4.6 3.5 - 10 lymph 18.0 15 - 50 mid 5.5 2 - 15 gran 76.5 35 - 80 rbc 4.66 3.5 - 5.5 hgb 13.5 11.5 - 16.5 hct 39.3 35 - 55 mcv 84.3 75 - 100 mch 29.0 25 - 35 mchc 34.4 31 - 38 platlet 279 100 - 400 P-Comprehensive Metabolic Pa ashley (CMP) Reviewed date:06/25/2024 08:29:09 AM Interpretation:gluc 102 Performing Lab: Notes/Report: Test performed by [facility] , [address], [place] [address] Kirill Jacobs MD, Floor Tiling Professional CLIA: [id number] Sodium 143 135-145 mmol/L Potassium 4.0 3.5-5.3 mmol/L Chloride 107 97-108 mmol/L CO2 26 22-32 mmol/L Glucose 102 65-99 mg/dL BUN 14 8-23 mg/dL Creatinine 0.67 0.50-1.00 mg/dL Calcium 9.8 8.6-10.4 mg/dL eGFR by Creatinine 92 >59 mL/min/1.73m2 Protein 6.7 6.0-8.3 g/dL Albumin 4.6 3.5-5.3 g/dL Alkaline Phosphatase 77 35-121 IU/L ALT (SGPT) 15 <5-47 IU/L AST (SGOT) 17 <5-40 IU/L Bilirubin, Total 0.6 <0.2-1.2 mg/dL A/G Ratio 2.2 1.1-2.5 P-Lipid Panel Reviewed date:06/25/2024 08:29:09 AM Interpretation:Normal Performing Lab: Notes/Report: Test performed by [employer], [address] , [address], [place] [address] Kirill Jacobs MD, Floor Tiling Professional CLIA: [id number] Cholesterol 162 <200 mg/dL Triglycerides 135 <150 mg/dL HDL Cholesterol 50 >39 mg/dL Cholesterol / HDL Ratio 3.24 0.00-4.44 Ratio Non-HDL Cholesterol 112 <130 mg/dL LDL Cholesterol (Calculation) 85 <130 mg/dL LDL Cholesterol Levels* Less than 100 mg/dL Optimal 100 to 129 mg/dL Near Optimal/ Above Optimal 130 to 159 mg/dL Borderline High 160 to 189 mg/dL High 190 mg/dL and above Very High * Categories as recommended by the 2004 ATPIII guidelines LDL/HDL Ratio 1.7 <3.3 Ratio LDL Cholesterol Patient History Test Date: 05/16/2023 LDL Results: 73 Units: mg/dL % Change: - Test Date: 02/27/2024 LDL Results: 81 Units: mg/dL % Change: +10% Test Date: 06/23/2024 LDL Results: 85 Units: mg/dL % Change: +4% Mammogram Reviewed date:07/14/2024 10:16:56 AM Interpretation:Negative Performing Lab: Notes/Report: Negative result Negative Reason For Referral Reason Tendinitis of thumb Diagnosis 1 Thumb pain, right (M 79.644) Referral Organization [facility] Referring Provider First Name Chitra Martinez Referring Provider Last Name Alex Referring Provider Speciality [facility] Referred Provider EDWIGE GUERRERO Referred Provider Specialty Hand Surgery General Notes Susie Hughes 06/23/19 11:56:53 AM > faxed to Dr. Guerrero's office, Susie Hughes 06/24/2024 8:50:51 AM > faxed referral to Dr. Garcia's office Referral Priority Routine REASON FOR VISIT checkup with labs and Annual Wellness Visit Medications Medication SIG (Take, Route, Frequency, Duration) Notes Start Date End Date Status Xarelto 20 MG 1 tab(s) orally once a day (in the evening) Active Metoprolol Succinate ER 25 MG 1 tab(s) orally once a day Active Famotidine 20 MG 1 tab(s) orally 2 ti mes a day; Duration: 90 days Active Cetirizine HCl 10 MG 1 tab(s) orally onc e a day Active Docusate Sodium 100 MG 2TABS P.O. Q DAY Active Alendronate Sodium 70 MG 1 tab(s) orally once a week Not-Taking amLODIPine Besylate 10 MG 1 tab(s) orally once a day Active Benazepril HCl 20 MG 1 tab(s) orally onc e a day Active Vitamin E Blend 400 UNIT 1 cap(s) orally once daily Active Prolia 60 MG/ML as directed Subcutaneous 4 Active Pravastatin Sodium 40 MG 1 tab(s) orally once a day (at bedtime); Duration: 90 days Active Immunizations Vaccine Route Administration Date Status Comme nts Prevnar (PCV20) IM Intramuscular 06/23/2024 Administered Problems Problem Type SNOMED Code ICD Code Onset Dates Problem Status W/U Status Risk Notes Problem Other seasonal allergic rhinitis (J30.2) Active confirmed Vital Signs Blood pressure systolic 142 mm Hg 06/23/19 25 Blood pressure diastolic 94 mm Hg 025 Heart Rate 64 /min 06/23/2024 Height 65 in 06/23/2024 Weight 143.8 lbs 06/23/2024 BMI 23.93 kg/m2 06/23/2024 Encounters Encounter Location Date Provider Diagnosis [facility] [address] [facility] [address] [place] [phone] 06/23/2024 Chitra Johnson Adult general medica l examination Z00.00 ; HTN (hypertension) I10 ; Mixed hyperlipidemia E78.2 ; Paroxysmal atrial fibrillation I48.0 ; Osteoporosis M81.0 ; GERD (gastroesophageal reflux disease) K21.9 ; Seasonal allergic rhinitis J30.2 ; Screening for breast cancer Z12.39 ; Thumb pain, right M79.644 ; BMI 23.0-23.9, adult Z68.23 and Other seasonal allergic rhinitis J30.2 Assessments Encounter Date Diagnosis (ICD Code) Assessment Notes Treatment Notes Treatment Clinical Notes Section Notes 06/23/2024 Adult general medical examination (ICD-10 - Z00.00) Patient instructed to return to office Annually for Annual Wellness Visits to include annual screenings of Pain assessment, Functional Ability assessment, Cognitive Ability assessment, Fall Risk assessment, Depression screening and Bladder control screening. 06/23/2024 HTN (hypertension) (ICD-10 - I10) 06/23/2024 Mixed hyperlipidemia (ICD-10 - E78.2) 06/23/2024 Paroxysmal atrial fibrillation (ICD-10 - I48.0) 06/23/2024 Osteoporosis (ICD-10 - M81.0) 06/23/2024 GERD (gastroesophageal reflux disease) (ICD-10 - K21.9) 06/23/2024 Seasonal allergic rhinitis (ICD-10 - J30.2) 06/23/2024 Screening for breast cancer (ICD-10 - Z12.39) 06/23/2024 Thumb pain, right (ICD-10 - M79.644) 06/23/2024 BMI 23.0-23.9, adult (ICD-10 - Z68.23) 06/23/2024 Other seasonal allergic rhinitis (ICD-10 - J30.2) Plan Of Treatment Medication Medication Name Sig Start Date Stop Date Notes Xarelto 20 MG 1 tab(s) orally once a day (in the evening) Metoprolol Succinate ER 25 MG 1 tab(s) orally once a day Famotidine 20 MG 1 tab(s) orally 2 ti mes a day; Duration: 90 days amLODIPine Besylate 10 MG 1 tab(s) orally once a day Benazepril HCl 20 MG 1 tab(s) orally once a day Prolia 60 MG/ML as directed Subcutaneous 06/21/2023 Pravastatin Sodium 40 MG 1 tab(s) orally once a day (at bedtime); Duration: 90 days Treatment Notes Assessment Notes Adult general medical examination Patien t instructed to return to office Annually for Annual Wellness Visits to include annual screenings of Pain assessment, Functional Ability assessment, Cognitive Ability assessment, Fall Risk assessment, Depression screening and Bladder control screening. Referrals Referral Date Details 06/23/2024 06/23/2024, Tendinit is of thumb, EDWIGE GUERRERO Next Appt Details Follow Up: 1 Year, Reason: Progress Notes * Rod FATIMA:1950 ( 74 yo F)Acc No.[id number]:06/23/2024 Physical Patient: Tanja ZAVALA Provider: Chitra Johnson M.D. :1950 A ge:73 Y S ex:Female Date:06/23/2024 Address:[address], [id number] Subjective: * Chief Complaints: * 1 . checkup with labs and Annual Wellness Visit. * HPI: H PI: Patient is here today for a check up with lab work and a Medicare Annual Wellness Visit. Pt is fasting today. C ardiology: c/o Blood Pressure Elevated. 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 W rist/Hand: c/o pain A round her right thumb for about 2 months. It started 2 months ago after she felt a pop in her thumb and thought it would get better on its own, however pain has persisted. She denies any initial swelling or bruising. She localizes the pain over the MP joint and the extensor tendon of the thumb. It limits daily activities such as opening jars, lifting heavy objects, and also hurts with fine motor activities as well..? R heumatology: She has completed her dental implants and needs to be started back on her Prolia injections. Her last injection was about a year ago. She is also due for bone density testing. * ROS: D ERMATOLOGY: no R yuri. n o H nydia. G ASTROENTEROLOGY: no N ausea. n o V omiting. n o D iarrhea.? O PTHALMOLOGY: Negative for d enies vision issues. U ROLOGY: no D ifficulty urinating. n o B lood in urine. * Medical History: H ypertension, Carotid bruit - doppler 04/2014 < 20% stenosis, HLP, Paroxysmal atrial fibrillation, Osteoporosis. 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 * Medications: T aking Vitamin E Blend 400 UNIT Capsule 1 cap(s) orally once daily , Taking Docusate Sodium 100 MG 2TABS P.O. Q DAY , Taking Cetirizine HCl 10 MG Tablet 1 tab(s) orally once a day , Taking Prolia 60 MG/ML Solution Prefilled Syringe as directed Subcutaneous , Taking Metoprolol Succinate ER 25 MG Tablet Extended [...] 1 tab(s) orally once a day , Not-Taking Alendronate Sodium 70 MG Tablet 1 tab(s) orally once a week , Medication List reviewed and reconciled with the patient * Allergies: N .K.D.A. Objective: * Vitals: W t:143.8, Temp:97.9, BP:142/94, HR:64, O2 Sat:97% on RA, Nurse:ARMANDO, Ht: 65, BMI:23.93. * Examination: G eneral Examination: General Appearance: [...] soft, not distended, nontender, bowel sounds present. E xtremities: n o leg edema. Exam of the right thumb shows no obvious deformity, swelling, or bruising. Range of motion is nearly full with some pain on opposition of the small finger. There is mild tenderness with the MP joint and the extensor tendon. Pain is elicited with resisted extension.. * Physical Examination: G ENERAL: Pain Assessment: P ain level: , on a scale of 0-10 (with 10 being extreme pain). F unctional Status Assessment: P atient response to question of how often physical health interferes with daily activities: . Able to perform ADLs-including meal preparation, grocery shopping, housework, laundry, taking medications or handling finances. Cognitive Status: alert and oriented. Ambulation Status: Fully ambulatory . F all Risk Assessment: I ndependant in ambulation, adequate lighting in home. Patient has NOT fallen or had trouble walking within the past 12 months. D epression Screening: D ennguynễ depressed mood or anxiety. Describes emotional health as:. B ladder Control Screening: D payton problems. Assessment: * Assessment: 1. A dult general medical examination - Z00.00 (Primary) 2 . H TN (hypertension) - I10 3 . M ixed hyperlipidemia - E78.2 4 . P aroxysmal atrial fibrillation - I48.0 5 . O steoporosis - M81.0 6 . G ERD (gastroesophageal reflux disease) - K21.9 7 . S easonal allergic rhinitis - J30.2 8 . S creening for breast cancer - Z12.39 9 . T humb pain, right - M79.644 1 0. B IA 23.0-23.9, adult - Z68.23 1 1. Other seasonal allergic rhinitis - J30.2 Plan: * Treatment: Value Reference Range w bc 4.6 3.5 - 10 * l ymph 18.0 15 - 50 * m id 5.5 2 - 15 * g ran 76.5 35 - 80 * r bc 4.66 3.5 - 5.5 * h gb 13.5 11.5 - 16.5 * h ct 39.3 35 - 55 * m cv 84.3 75 - 100 * m ch 29.0 25 - 35 * m chc 34.4 31 - 38 * p latlet 279 100 - 400 * PearlSharonda 06/23/2024 12:1 5:00 PM > Chitra Johnson 06/25/2024 8:28:51 AM >See phone encounter Notes:Patient instructed to return to office Annually for Annual Wellness Visits to include annual screenings of Pain assessment, Functional Ability assessment, Cognitive Ability assessment, Fall Risk assessment, Depression screening and Bladder control screening.??2.?HTN (hypertension)? Continue Benazepril HCl Tablet, 20 MG, 1 tab(s), orally, once a day;?Continue amLODIPine Besylate Tablet, 10 MG, 1 tab(s), orally, once a day.?LAB: P-Comprehensive Metabolic Panel (CMP) (Collection Date & Time - 06/23/2024 10:01 AM)?gluc 102* Value Reference Range A /G Ratio 2.2 1.1-2.5 - * A lbumin 4.6 3.5-5.3 - g/dL * A lkaline Phosphatase 77 35-121 - IU/L * A LT (SGPT) 15 <5-47 - IU/L * A ST (SGOT) 17 <5-40 - IU/L * B ilirubin, Total 0.6 <0.2-1.2 - mg/dL * B UN 14 8-23 - mg/dL * C alcium 9.8 8.6-10.4 - mg/dL * C hloride 107 97-108 - mmol/L * C O2 26 22-32 - mmol/L * C reatinine 0.67 0.50-1.00 - mg/dL * G lucose 102 H 65-99 - mg/dL * P otassium 4.0 3.5-5.3 - mmol/L * S odium 143 135-145 - mmol/L * P rotein 6.7 6.0-8.3 - g/dL * e GFR by Creatinine 92 >59 - mL/min/1.73m2 * Chitra Johnson 06/25/2024 8 :28:51 AM >See phone encounter 3.?Mixed hyperlipidemia? Refill Pravastatin Sodium Tablet, 40 MG, 1 tab(s), orally, once a day (at bedtime), 90 days, 90, Refills 3.?LAB: P-Lipid Panel (Collection Date & Time - 06/23/2024 10:01 AM)?Normal* Value Reference Range C holesterol / HDL Ratio 3.24 0.00-4.44 - Ratio * C holesterol 162 <200 - mg/dL * H DL Cholesterol 50 >39 - mg/dL * L DL Cholesterol (Calculation) 85 <130 - mg/d L * L DL/HDL Ratio 1.7 <3.3 - Ratio * N on-HDL Cholesterol 112 <130 - mg/dL * T riglycerides 135 <150 - mg/dL * Chitra Johnson 06/25/2024 8 :28:51 AM >See phone encounter 4.?Paroxysmal atrial fibrillation? Continue Metoprolol Succinate ER Tablet Extended Release 24 Hour, 25 MG, 1 tab(s), orally, once a day;?Continue Xarelto Tablet, 20 MG, 1 tab(s), orally, once a day (in the evening).?LAB: Urinalysis - Inhouse (Collection Date & Time - 06/23/2024)* Value Reference Range C olor/Clarity yellow/clear * L euk neg * N itrite neg * U robili 3.2 * P rotein neg * p H 6.5 * B lood trace-intact * S p. Gr. 1.015 * K etone neg * B mandi neg * G tom neg * Sharonda Kang 06/23/2024 11:3 2:37 AM > Chitra Johnson 06/25/2024 8:28:51 AM >See phone encounter 5.?Osteoporosis? Refill Prolia Solution Prefilled Syringe, 60 MG/ML, as directed, Subcutaneous, 1, Refills 1.? 6.?GERD (gastroesophageal reflux disease)? Refill Famotidine Tablet, 20 MG, 1 tab(s), orally, 2 times a day, 90 days, 180, Refills 3.? 7.?Screening for breast cancer?Imaging: Mammogram (Performed Date - 07/10/2024)?Negative* Value Reference Range r esult Negative * Susie Hughes 06/23/2024 11:33 :09 AM > faxed to [facility] 07/14/2024 10:16:44 AM > Pt informed 8.?Thumb pain, right? Referral To:EDWIGE GUERRERO??Hand Surgery ?Reason:Tendinitis of thumb * Immunizations: Prevnar (PCV20) : 0.5 mL (Route: Intramuscular) given by Sharonda Kang on Left Deltoid (Adult general medical examination) * Procedure Codes: G 0439 ANNUAL WELLNESS VST; PPS SUBSQT VST, 57947 PULSE OX, G0444 ANNUAL DEPRESSION SCREENING 15 MIN, 1090F PRES/ABSN URINE INCON ASSESS, 3288F FALL RISK ASSESSMENT DOCD, 1170F FXNL STATUS ASSESSED, 1159F MED LIST DOCD IN RCRD, 1003F LEVEL OF ACTIVITY ASSESS, 76640 CBC WITH AUTO DIFF, 1036F TOBACCO NON-USER, 3017F COLORECTAL CA SCREEN DOC REV, 59547 Urinalysis, no micro, 1125F AMNT PAIN NOTED PAIN PRSNT, 4040F PNEUMOC IMM ORDER/ADMIN, G8510 NEG SCR Depression PT NOT ELIG F/U/PLN DOC, 3077F SYST BP = 140 MM HG6 IT, 3080F DIAST BP = 90 MM HG * Preventive Medicine: Counseling: E motional health: D iscussed ways to improve socialization. B ladder control: M ethods of controlling or managing leakage of urine discussed. E xercise: Patient advised to start, increase or maintain level of exercise/physical activity. I njury prevention: F all prevention discussed. Discussed need for cane/walker. Potential trip hazards discussed. Immunizations: T etanus u p to date. P neumococcal r ecommended. I nfluenza u p to date. Screening / Special Tests: M ammogram R ecent history: 06/07/2023, negative, recommended today. C olonoscopy R ecent history:, Cologuard: 04/02/2022, negative. B one mineral Density R ecent history: 06/07/2023, osteoporosis, recommended. * Follow Up: 1 Year * Images: Billing Information: * Visit Code: 71823 Office Visit, Est Pt., Level 3. Modifiers: 25 * Procedure Codes: G0439 ANNUAL WELLNESS VST; PPS SUBSQT VST. 68321 PULSE OX. G0444 ANNUAL DEPRESSION SCREENING 15 MIN. 1090F PRES/ABSN URINE INCON ASSESS. 3288F FALL RISK ASSESSMENT DOCD. 1170F FXNL STATUS ASSESSED. 1159F MED LIST DOCD IN RCRD. 1003F LEVEL OF ACTIVITY ASSESS. 88169 CBC WITH AUTO DIFF. 1036F TOBACCO NON-USER. 3017F COLORECTAL CA SCREEN DOC REV. 68368 Urinalysis, no micro. 1125F AMNT PAIN NOTED PAIN PRSNT. 4040F PNEUMOC IMM ORDER/ADMIN. G8510 NEG SCR Depression PT NOT ELIG F/U/PLN DOC. 3077F SYST BP = 140 MM HG6 IT. 3080F DIAST BP = 90 MM HG. * Electronic signature of Chitra Johnson MD on 12/30/2024 at 03:32 AM EDT Sign off status: Pending * Provider: Chitra Johnson M.D. 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 It started 2 months ago after she felt a pop in her thumb and thought it would get better on its own, however pain has persisted. She denies any initial swelling or bruising. She localizes the pain over the MP joint and the extensor tendon of the thumb. It limits daily activities such as opening jars, lifting heavy objects, and also hurts with fine motor activities as well. HPI Patient is here toda y for a check up with lab work and a Medicare Annual Wellness Visit. Pt is fasting today Physical Examination Category Sub-Category Detail Notes Section Note s GENERAL Pain Assessment: Pain level: , o n a scale of 0-10 (with 10 being extreme pain) Functional Status Assessment: Patient response to question of how often physical health interferes with daily activities: . Able to perform ADLs-including meal preparation, grocery shopping, housework, laundry, taking medications or handling finances. Cognitive Status: alert and oriented. Ambulation Status: Fully ambulatory Fall Risk Assessment: Independant in amb ulation, adequate lighting in home. Patient has NOT fallen or had trouble walking within the past 12 months Depression Screening: Denies depressed m ood or anxiety. Describes emotional health as: Bladder Control Screening: Denies proble ms Examination Category Sub-Category Detail Notes Category Not es General Examination HEENT: sclera and c onjunctiva clear, PERRLA, TM's normal, translucent Heart: RSR Lungs: clear to auscultatio n Abdomen: soft, not distended, nontender, bowel sounds present Extremities: no leg edema. Exam o f the right thumb shows no obvious deformity, swelling, or bruising. Range of motion is nearly full with some pain on opposition of the small finger. There is mild tenderness with the MP joint and the extensor tendon. Pain is elicited with resisted extension. General Appearance: NAD Neck: supple, no lymphaden opathy Oral cavity: no lesions, mucosa m oist and WNL, no erythema Chest: normal shape and exp ansion Consultation Request Notes Referral Date Referring Provider Referred Provider Not es 06/23/2024 Chitra Johnson MARGARET Te ndinitis of thumb
--- OUTSIDE RECORDS SUMMARY | 2024-12-30 09:27 | XMS_ITS ---
Author Organization Unknown Problems Date Problem Result OnSetDate Icd10 SnomedCode Severity Cu stom 10/07/2024 00:00:00 Other seasonal allergic rhinitis J30.2 [id number]
--- OUTSIDE RECORDS SUMMARY | 2024-12-30 09:27 | XMS_ITS | Patient Health Record ---
[facility] [address] [facility] [address] [facility] [address] [place] [phone] Care Team Providers Care Manager Of Pmo Name Role Phone Chitar Johnson Primary Care Provider [phone] Allergies No Known Allergies Results Component Value Reference Range Notes P-Comprehensive Metabolic Pa ashley (CMP) Reviewed date:03/08/2024 10:15:18 PM Interpretation:gluc 101 Performing Lab: Notes/Report: Test performed by [facility] [facility] , [address], [place] [address] Kirill Jacobs MD, Card Maker CLIA: [id number] Sodium 144 135-145 mmol/L Potassium 4.0 3.5-5.3 [...] Interpretation:Normal Performing Lab: Notes/Report: Test performed by [facility], [employer] [address] [place] [address] , [address], [place] [address] Kirill Jacobs MD, Card Maker CLIA: [id number] Cholesterol 148 <200 mg/dL Triglycerides 115 <150 [...] Results: 81 Units: mg/dL % Change: +10% Urinalysis - Inhouse Reviewed date:06/25/2024 08:29:09 AM [...] 102 Performing Lab: Notes/Report: Test performed by [facility], [employer] [address] [facility] , [address], [place] [address] Kirill Jacobs MD, Card Maker CLIA: [id number] Sodium 143 135-145 mmol/L Potassium 4.0 3.5-5.3 [...] Interpretation:Normal Performing Lab: Notes/Report: Test performed by [facility] [facility] , [address], [place] [address] Kirill Jacobs MD, Card Maker CLIA: [id number] Cholesterol 162 <200 mg/dL Triglycerides 135 <150 [...] Interpretation:Negative Performing Lab: Notes/Report: Negative result Negative Bone density Reviewed date:07/16/2024 09:58:06 AM Interpretation:osteoporosis l-spine, osteopenia hips Performing Lab: Notes/Report: osteoporosis l-spine, osteopenia hips Bone density osteoporosis l-spine , osteopenia hips Reason For Referral Reason Tendinitis of thumb Diagnosis 1 Thumb pain, right (M 79.644) Referral Organization [facility] Referring Provider First Name Chitra Martinez Referring Provider Last Name Alex [facility] Provider EDWIGE GUERRERO Referred Provider Specialty Hand Surgery General Notes Susie Hughes 06/23/19 11:56:53 AM > faxed to Dr. Guerrero's office, Susie Hughes 06/24/2024 8:50:51 AM > faxed referral to Dr. Garcia's office Referral Priority Routine Medications Medication SIG (Take, Route, Frequency, Duration) Notes Start Date End Date Status Xarelto 20 MG 1 tab(s) orally once a day (in the evening) Active Prolia 60 MG/ML as directed Subcutaneous 4 Active Metoprolol Succinate ER 25 MG 1 tab(s) orally once a day A ctive Famotidine 20 MG 1 tab(s) orally 2 ti mes a day; Duration: 90 days Active amLODIPine Besylate 10 MG 1 tab(s) orally once a day Active Pravastatin Sodium 40 MG 1 tab(s) orally once a day (at bedtime); Duration: 90 days Active Benazepril HCl 20 MG 1 tab(s) orally once a day Active Cetirizine HCl 10 MG 1 tab(s) orally once a day Active Docusate Sodium 100 MG 2TABS P.O. Q DAY Active Vitamin E Blend 400 UNIT 1 cap(s) orally once daily Active Immunizations Vaccine Route Administration Date Status Comme nts COVID 19 Moderna Unknown 07/06/2020 Administered COVID 19 Moderna Unknown 08/03/2020 Administered COVID 19 Moderna Unknown 02/22/2021 Administered DT, 7 YEARS OR OLDER Unknown 07/30/1996 Administered Fluzone High Dose (65yr and older) IM Intramuscular 05/13/2018 Administered Fluzone High Dose (65yr and older) IM Intramuscular 03/07/2020 Administered Fluzone High Dose (65yr and older) IM Intramuscular 05/02/2021 Administered Fluzone High Dose (65yr and older) Unknown 03/27/2023 Administered PNEUMOVAX 23 VACCINE IM Intramuscular 05/13/2018 Administe red Prevnar (PCV13) IM Intramuscular 11/13/2016 Administered Prevnar (PCV20) IM Intramuscular 06/23/2024 Administered Shingrix Unknown 02/25/2024 Administered Tetanus Tdap-Adacel (over 7yrs) Unknown 05/31/2015 Administered xFluzone High Dose-private (65yr&older) Unknown 01/24/2024 Administered Problems Problem Type SNOMED Code ICD Code Onset Dates Problem Status W/U Status Risk Notes Problem Gastroesophageal reflux disease (487214651) GERD (gastroesophageal reflux disease) (K21.9) Active confirmed Problem Hypertension (04247895) HTN (hypertension) (I10) Active confirmed Problem Supraventricular tachycardia (9690263) SVT (supraventricular tachycardia) (I47.1) Active confirmed Problem Seasonal allergic rhinitis (165131311) Seasonal allergic rhinitis (J30.2) Active confirmed Problem Paroxysmal atrial fibrillation (532950730) Paroxysmal atrial fibrillation (I48.0) Active confirmed Problem Seasonal allergic rhinitis (573058479) Other seasonal allergic rhinitis (J30.2) Active confirmed Problem Mixed hyperlipidemia (712290021) Mixed hyperlipidemia (E78.2) Active confirmed Problem Osteoporosis (08661248) Osteoporosis (M81.0) Active confirmed Problem Bruit of right carotid artery (R09.89) Active confirmed Vital Signs Heart Rate 64 /min 06/23/2024 Blood pressure diastolic 94 mm Hg 06/23/2024 Height 65 in 06/23/2024 Blood pressure systolic 142 mm Hg 06/23/2024 Weight 143.8 lbs 06/23/2024 BMI 23.93 kg/m2 06/23/2024 Encounters Encounter Location Date Provider Diagnosis [place] [address] [facility] [address] [facility] [address] [place] [id number] 02/27/2024 Chitra Johnson HTN (hypertension) I 10 ; Mixed hyperlipidemia E78.2 ; Paroxysmal atrial fibrillation I48.0 ; Osteoporosis M81.0 ; GERD (gastroesophageal reflux disease) K21.9 and Seasonal allergic rhinitis J30.2 [facility] [address] [facility] [address] [facility] [address] [place] [id number] 06/23/2024 R Juan Johnson Adult general medica l examination Z00.00 ; HTN (hypertension) I10 ; Mixed hyperlipidemia E78.2 ; Paroxysmal atrial fibrillation I48.0 ; Osteoporosis M81.0 ; GERD (gastroesophageal reflux disease) K21.9 ; Seasonal allergic rhinitis J30.2 ; Screening for breast cancer Z12.39 ; Thumb pain, right M79.644 ; BMI 23.0-23.9, adult Z68.23 and Other seasonal allergic rhinitis J30.2 [facility] [address] [facility] [address] [place] [id number] 03/08/2024 R Juan Johnson [place] [address] [facility] [address] [place] [id number] 06/25/2024 R Juan Ibar[facility]fleet [place] [address] [place] [id number] 07/16/2024 Chitra Ibarrafleet Osteoporosis M81.0 Assessments Encounter Date Diagnosis (ICD Code) Assessment Notes Treatment Notes Treatment Clinical Notes Section Notes 02/27/2024 HTN (hypertension) (ICD-10 - I10) 02/27/2024 Mixed hyperlipidemia (ICD-10 - E78.2) 06/23/2024 HTN (hypertension) (ICD-10 - I10) 06/23/2024 Adult general medical examination (ICD-10 - Z00.00) Patient instructed to return to office Annually for Annual Wellness Visits to include annual screenings of Pain assessment, Functional Ability assessment, Cognitive Ability assessment, Fall Risk assessment, Depression screening and Bladder control screening. 07/16/2024 Osteoporosis (ICD-10 - M81.0) 02/27/2024 Paroxysmal atrial fibrillation (ICD-10 - I48.0) 06/23/2024 Mixed hyperlipidemia (ICD-10 - E78.2) 06/23/2024 Paroxysmal atrial fibrillation (ICD-10 - I48.0) 02/27/2024 Osteoporosis (ICD-10 - M81.0) 06/23/2024 Osteoporosis (ICD-10 - M81.0) 02/27/2024 GERD (gastroesophageal reflux disease) (ICD-10 - K21.9) 02/27/2024 Seasonal allergic rhinitis (ICD-10 - J30.2) 06/23/2024 GERD (gastroesophageal reflux disease) (ICD-10 - K21.9) 06/23/2024 Seasonal allergic rhinitis (ICD-10 - J30.2) 06/23/2024 Screening for breast cancer (ICD-10 - Z12.39) 06/23/2024 Thumb pain, right (ICD-10 - M79.644) 06/23/2024 BMI 23.0-23.9, adult (ICD-10 - Z68.23) 06/23/2024 Other seasonal allergic rhinitis (ICD-10 - J30.2) Plan Of Treatment No Information Insurance Providers Payer Name Payer Address Payer Phone Subscriber Number Group Number Insured Name Patient Relationship to Insured Coverage Start Date Coverage End Date MEDICARE PART B [address] [address] [place] [id number] [phone] [id number] Tanja Fatima Self - patient is the insured [facility] [facility] [address] [place] [address] [phone] [id number] Tanja Fatima Self - patient is the insured Medications Administered Medication Instructions Date of Administration Dosage Notes Dexamethasone 05/13/2018 1 mL Medical (General) History Medical History History ICD Code hypertension Carotid bruit - doppler 04/2014 < 20% st enosis HLP Paroxysmal atrial fibrillation Osteoporosis Surgical History Surgery Date(Month/Year) Biopsy L breast 04/29 bilateral Cataract surgery 10/12/13, right eye surgery-Dr Ann @ [facility] Retina 11/19/17 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
[2024-12-30 09:36] VITALS: BP 142/77; PULSE 67; RESP 20; TEMP 37; O2SAT 99
[2024-12-30] MEDS: DENOSUMAB 60 MG/ML SYRINGE SUBCUT (09:36)
== END 2024-12-30 10:10 | disposition home or self-care (01) ==
LOC: INF 09:25
PROVIDERS: PCP Family Medicine; Visit Provider Family Medicine
DX: M81.0 Age-related osteoporosis without current pathological fracture (principal)
CPT/HCPCS: 96372; J0897